=== PATIENT | male | born 1965 | race Caucasian/White ===

== ENCOUNTER 2021-06-16 12:48 | Inpatient (IN) ==
[2021-06-16 14:37] LABS: POC Blood Urea Nitrogen 39 mg/dL (6-20); POC CO2 27 mmol/L (22-30); POC Calcium, Ionized 0.81 mmEq/L (1.16-1.32); POC Chloride 94 mEq/L (96-108); POC Creatinine 2.1 mg/dL (0.6-1.2); POC Glucose, Random 89 mg/dL (70-105); POC Hematocrit 41 % (41-55); POC Potassium 3.4 mEql/L (3.3-5.1); POC Sodium 138 mEq/L (133-145)
[2021-06-16] MEDS ORDERED: FUROSEMIDE 40 MG/4 ML VIAL IV ONE (14:45)
--- NOTE | 2021-06-16 14:50 | XRay Report ---
INDICATION: CHF TECHNIQUE: AP portable upright chest x-ray COMPARISON: Previous chest x-rays dated 11/12/2012, 04/10/2011 FINDINGS:Previous median sternotomy. There is a left-sided cardiac pacemaker Lungs:Lungs are negative. No focal pulmonary parenchymal infiltrate or mass Heart, vascular: Heart size is at the upper limits of normal considering AP positioning. Pulmonary vascularity is normal. No pulmonary edema or pulmonary congestion Mediastinum, gracia:No mediastinal widening. No hilar mass Pleura:No pleural fluid. No pleural-based mass or calcification Skeletal:Negative. IMPRESSION: 1. No acute or focal abnormality 2. No evidence for congestive heart failure Interpreted and Authenticated by: Oswald Bonilla 06/16/21
[2021-06-16] MEDS ORDERED: CHLOROTHIAZIDE SODIUM 500 MG VIAL IV ONE (15:58)
--- NOTE | 2021-06-16 16:20 | Emergency Department Note ---
SOB HPI General Chief Complaint: Shortness of Breath/Dyspnea Stated Complaint: Short of breath Time Seen by Provider: 06/16/21 13:05 Source: patient Mode of arrival: ambulatory Limitations: no limitations History of Present Illness HPI Narrative: This is a 55-year-old male who presents with history of CHF and acute CHF exacerbation. He was treated 2 days ago at [facility] ER with 40 mg of IV Lasix and initially felt better. He was sent home with a recommendation for adding an additional 20 Lasix a day orally. He states that this has not helped and he is now reporting increasing shortness of breath with exertion. He also reports a 16 pound weight gain in the last 2 weeks. Patient has a history of CAD status post CABG x2 in the remote past. He also has a history of atrial fibrillation on chronic Eliquis therapies x1 year and he is status post PPM. He currently denies chest pain, diaphoresis, nausea or vo miting. Patient had an echocardiogram on 06/10/2021 and it showed a mildly reduced LVEF of 45% and global hypokinesis. In addition, he was noted to have moderate to severe aortic stenosis with an aortic valve area of 0.9 cm. The aortic stenosis has progressed since previous echocardiogram. He does have normal diastolic function and RSVP of 40 mmHg. Related Data Allergies Allergy/AdvReac Type Severity Reaction Status Date / Time [id number] Reductase AdvReac Intermediate Irritable Verified 06/16/21 12:52 Inhibitor Review of Systems ROS ROS Narrative: Narrative: All systems ED: reviewed and negative except as stated. PFS Narrative Patient History Narrative: Narrative: Medical/Surgical/Family History All Active Problems (Updated 06/16/21 @ 17:07 by Darlyn Syed PA-C) Congestive heart failure (Acute) Aortic stenosis, severe (Acute) Acute kidney failure (Acute) Social History Smoking Status: Never smoker Exam Narrative Narrative: Narrative: General Limitations: no limitations Course Course Course Narrative: 55-year-old male presents for acute CHF exacerbation Reevaluation(s) Reevaluation #1: Obtain CBC, CMP, BNP, TSH, troponin Obtain EKG and chest x-ray Establish IV for IV Lasix Reevaluation #2: Patient's TSH is elevated at 8.4, troponin is less than 0.02. CMP with significant elevation in his creatinine to 2.1 from 1.4 on 06/14/2021. BUN is also elevated at 39. BNP is essentially unchanged from 06/14/2021 at 2060. Chest x-ray shows no pulmonary edema and mild cardiomegaly. EKG shows atrial f ibrillation with V-paced complexes with a rate of 55 bpm. Give 40 mg IV Lasix, consider potentiating with 250 of IV Diuril if he does not respond robustly. I have reached out to the hospitalist for admission for ongoing IV diuresis and treatment for his hypothyroidism, which may be contributing to his shortness of breath and lower extremity edema. He has an appointment with the cardiology physician personal banking assistant on Sunday at 8 AM. Vital Signs Vital signs: Vital Signs Temperature 98.1 F 06/16/21 12:49 Pulse Rate 63 06/16/21 12:49 Respiratory Rate 18 06/16/21 12:49 Blood Pressure 171/90 06/16/21 12:49 Pulse Oximetry (%) 96 06/16/21 12:49 Temperature 98.1 F 06/16/21 12:49 Pulse Rate 55 L 06/16/21 16:45 Respiratory Rate 20 06/16/21 16:45 Blood Pressure 141/79 06/16/21 16:45 Pulse Oximetry (%) 100 06/16/21 16:45 [facility] MDM Narrative Medical decision making narrative: Acute CHF exacerbation Hypothyroidism Acute kidney injury Severe aortic stenosis Patient meets criteria for admission and I believe he needs to be admitted for IV diuresis and stabilization, and monitoring of his kidney function. Patient is Covid negative. He is amenable for admission. He has follow-up with his cardiologists office on Sunday. I have spoken with Dr. Chau and he has accepted the patient for admission. Lab Data Result diagrams: 06/16/21 14:20 Labs: Lab Results 06/16/21 06/16/21 06/16/21 Range/Units 14:20 14:20 14:20 WBC (4.5-11.0) K/mcL RBC (4.63-6.08) M/mcL Hgb (13.7-17.5) g/dL Hct (40.1-51.0) % POC Hct 41 (41-55) % MCV (80.0-100.0) fL MCH (26.0-34.0) pg MCHC (31.0-36.0) g/dL RDW (11.5-14.5) % Plt Count (140-440) K/mcL MPV (7.4-10.4) fL Neut % (Auto) (38.0-78.0) % Lymph % (Auto) (15.5-49.0) % Wharton % (Auto) (1.0-12.0) % Eos % (Auto) (0.0-7.0) % Baso % (Auto) (0.0-2.0) % Lymph # (Auto) (1.50-4.80) K/mcL Wharton # (Auto) (0.10-0.90) K/mcL Eos # (Auto) (0.00-0.70) K/mcL Baso # (Auto) (0.00-0.30) K/mcL Absolute Neutrophils (1.80-8.00) K/mcL POC Sodium 138 (133-145) mEq/L POC Potassium 3.4 (3.3-5.1) mEql/L POC Chloride 94 L (96-108) mEq/L POC Total CO2 27 (22-30) mmol/L POC BUN 39 H (6-20) mg/dL POC Creatinine 2.1 H (0.6-1.2) mg/dL POC Glucose 89 (70-105) mg/dL POC WB Ioniz Calcium 0.81 L (1.16-1.32) mmEq/L Troponin T 0.02 (<0.03) ng/mL NT-Pro-B Natriuret Pep 2061.0 H (<125.0) pg/mL TSH 8.40 H (0.27-5.01) uIU/mL 06/16/21 Range/Units 14:20 WBC 7.3 (4.5-11.0) K/mcL RBC 4.31 L (4.63-6.08) M/mcL Hgb 13.0 L (13.7-17.5) g/dL Hct 40.1 (40.1-51.0) % POC Hct (41-55) % MCV 93.0 (80.0-100.0) fL MCH 30.2 (26.0-34.0) pg MCHC 32.4 (31.0-36.0) g/dL RDW 14.8 H (11.5-14.5) % Plt Count 188 (140-440) K/mcL MPV 11.2 H (7.4-10.4) fL Neut % (Auto) 66.7 (38.0-78.0) % Lymph % (Auto) 21.3 (15.5-49.0) % Wharton % (Auto) 11.1 (1.0-12.0) % Eos % (Auto) 0.5 (0.0-7.0) % Baso % (Auto) 0.4 (0.0-2.0) % Lymph # (Auto) 1.56 (1.50-4.80) K/mcL Wharton # (Auto) 0.81 (0.10-0.90) K/mcL Eos # (Auto) 0.04 (0.00-0.70) K/mcL Baso # (Auto) 0.03 (0.00-0.30) K/mcL Absolute Neutrophils 4.87 (1.80-8.00) K/mcL POC Sodium (133-145) mEq/L POC Potassium (3.3-5.1) mEql/L POC Chloride (96-108) mEq/L POC Total CO2 (22-30) mmol/L POC BUN (6-20) mg/dL POC Creatinine (0.6-1.2) mg/dL POC Glucose (70-105) mg/dL POC WB Ioniz Calcium (1.16-1.32) mmEq/L Troponin T (<0.03) ng/mL NT-Pro-B Natriuret Pep (<125.0) pg/mL TSH (0.27-5.01) uIU/mL ED POC Tests ED POC Tests: ROLO - SARS Antigen Negative Discharge Plan Patient/Caregiver Discharge Instructions Pt seen by [employer]/PA only: Yes Clinical Impression: Congestive heart failure, Aortic stenosis, severe, Acute kidney failure Patient Disposition: Xfer As Inpt ([facility]) Follow up with: Yasmin Chaudhry MD [Primary Care Provider] -
[2021-06-16] MEDS ORDERED: POTASSIUM CHLORIDE 20 MEQ TABLET PO ONE (16:33)
[2021-06-16 16:35] LABS: Basophils # (Auto) 0.03 K/mcL (0.00-0.30); Basophils % (Auto) 0.4 % (0.0-2.0); Eosinophils # (Auto) 0.04 K/mcL (0.00-0.70); Eosinophils % (Auto) 0.5 % (0.0-7.0); Hematocrit 40.1 % (40.1-51.0); Lymphocytes # (Auto) 1.56 K/mcL (1.50-4.80); Lymphocytes % (Auto) 21.3 % (15.5-49.0); Mean Corpuscular HGB Conc 32.4 g/dL (31.0-36.0); Mean Platelet Volume 11.2 fL (7.4-10.4); Monocytes # (Auto) 0.81 K/mcL (0.10-0.90); Monocytes % (Auto) 11.1 % (1.0-12.0); Neutrophils % (Auto) 66.7 % (38.0-78.0); Platelet Count 188 K/mcL (140-440); RBC 4.31 M/mcL (4.63-6.08); Red Cell Distribution Width 14.8 % (11.5-14.5); WBC 7.3 K/mcL (4.5-11.0)
--- NOTE | 2021-06-16 17:22 | Internal Med History&Physical ---
HPI History of Present Illness Patient information: Note initiated : 06/16/21 at 5:15 pm Service Date, if different from initiated Date: [] Patient: Michael Cross a 55 y/o M admitted on for Short of breath. Chief Complaint: [] History of present illness: Mr. Cross is a 55 year old M Presents the ED with shortness of breath especially with exertion over the past several weeks. Patient complains of 16 pound weight gain over the past couple weeks. He went in to [facility] several days ago and was given dose of IV Lasix did feel better that day and was told to take 20 mg of p.o. Lasix extra per day. Patient states that since he left he is decided worsening dyspnea with exertion again. Patient denies orthopnea. He has mild cough from allergies but no real change. No medication changes recently. Denies any changes in his diet. Patient states his normal weight is 250 pounds. Has a known history of aortic stenosis which is being followed by cardiology. Also has a history of atrial fibrillation and AV block status post pacemaker. He has mild obstructive sleep lung disease but does not require oxygen. Denies chest pain. Review of Systems: Pertinent positives as above. Denies headache/fever/chills/nausea/vomiting/chest or abdominal pain/diarrhea. Remaining 10 point review of system reviewed negative PFSH PFSH All Active Problems (Updated 06/16/21 @ 17:07 by Darlyn Syed PA-C) Congestive heart failure (Acute) Aortic stenosis, severe (Acute) Acute kidney failure (Acute) MEDS/ALLERGIES Home Medications and Allergies Allergies Allergy/AdvReac Type Severity Reaction Status Date / Time [id number] Reductase AdvReac Intermediate Irritable Verified 06/16/21 12:52 Inhibitor EXAM Constitutional Vitals: Temp Pulse Resp BP Pulse Ox 98.1 F 55 L 20 141/79 100 06/16/21 12:49 06/16/21 16:45 06/16/21 16:45 06/16/21 16:45 06/16/21 16:45 Exam: General: Alert, Awake, No acute Distress Eyes/N/T: EOMI, PERRL, Head/Neck: neck supple, normocephalic atraumatic, minimal HJR CV: RRR, No murmurs, normal s1/s2 Pulm: Clear b/l, no wheezing/rhonchi/rales Abd: soft, nontender, +BS x4 Ext: no clubbing/cyanosis, b/l LE 2+ edema Neuro: Alert, no focal deficits, moves all extremities, CN 2-12 grossly intact, symmetrical strength b/l upper/lower, sensations intact b/l upper/lower Skin: warm/dry DATA Data Completed and Pending Labs: Labs from last 24 hours 06/16/21 06/16/21 06/16/21 14:20 14:20 14:20 WBC 7.3 RBC 4.31 L Hgb 13.0 L Hct 40.1 POC Hct MCV 93.0 MCH 30.2 MCHC 32.4 RDW 14.8 H Plt Count 188 MPV 11.2 H Neut % (Auto) 66.7 Lymph % (Auto) 21.3 [place]ven % (Auto) 11.1 Eos % (Auto) 0.5 Baso % (Auto) 0.4 Lymph # (Auto) 1.56 [place]ven # (Auto) 0.81 Eos # (Auto) 0.04 Baso # (Auto) 0.03 Absolute Neutrophils 4.87 POC Sodium Sodium Pending POC Potassium Potassium Pending POC Chloride Chloride Pending Carbon Dioxide Pending POC Total CO2 Anion Gap Pending POC BUN BUN Pending Creatinine Pending POC Creatinine GFR Calculation Pending Glucose Pending POC Glucose Uric Acid Pending Calcium Pending POC WB Ioniz Calcium Phosphorus Pending Magnesium Pending Total Bilirubin Pending Direct Bilirubin Pending GGT Pending AST Pending ALT Pending Alkaline Phosphatase Pending Lactate Dehydrogenase Pending Troponin T NT-Pro-B Natriuret Pep Total Protein Pending Albumin Pending Globulin Pending Albumin/Globulin Ratio Pending Triglycerides Pending TSH 8.40 H 06/16/21 06/16/21 14:20 14:20 WBC RBC Hgb Hct POC Hct 41 MCV MCH MCHC RDW Plt Count MPV Neut % (Auto) Lymph % (Auto) Craven % (Auto) Eos % (Auto) Baso % (Auto) Lymph # (Auto) [place]ven # (Auto) Eos # (Auto) Baso # (Auto) Absolute Neutrophils POC Sodium 138 Sodium POC Potassium 3.4 Potassium POC Chloride 94 L Chloride Carbon Dioxide POC Total CO2 27 Anion Gap POC BUN 39 H BUN Creatinine POC Creatinine 2.1 H GFR Calculation Glucose POC Glucose 89 Uric Acid Calcium POC WB Ioniz Calcium 0.81 L Phosphorus Magnesium Total Bilirubin Direct Bilirubin GGT AST ALT Alkaline Phosphatase Lactate Dehydrogenase Troponin T 0.02 NT-Pro-B Natriuret Pep 2061.0 H Total Protein Albumin Globulin Albumin/Globulin Ratio Triglycerides TSH A/P Narrative A/P Narrative: A: *Acute on chronic systolic(45%) CHF: *Aortic stenosis: mod-sev on last echo *dyspnea on exertion: *CAD w/cabg & stents: Follows Dr. Salvador *PAF with complete AVB s/p PPM: *?DEBBI on CKD III: *COPD, mild: *obese: *Hypothyroidism: elevated TSH P: -IV lasix -elevate legs and comp wraps -f/u renal fxn -check T4, levothyroxine likely needs to be increased -Med reconciliation -pt/ot -ppx: eliquis DNR Time Spent With Patient Time: Total time spent is greater than 50% in coordination of care (as documented) at patient's floor/unit and/or counseling patient:
[2021-06-16 17:34] LABS: ALT/SGPT 13 U/L (<40); AST/SGOT 27 U/L (<40); Albumin 4.1 gm/dL (3.2-5.2); Albumin/Globulin Ratio 1.4 (1.0-2.3); Alkaline Phosphatase 90 U/L (39-117); Bilirubin,Direct 0.3 mg/dL (<0.3); Bilirubin,Total 1.3 mg/dL (0.1-1.0); Blood Urea Nitrogen 34 mg/dL (6-20); Calcium 7.1 mg/dL (8.6-10.4); Carbon Dioxide 22 mmol/L (22-30); Chloride 97 mmol/L (96-108); Globulin 2.9 gm/dL (2.2-3.7); Glomerular Filtration Rate 36; Glucose 90 mg/dL (70-105); Lactate Dehydrogenase 391 U/L (135-225); Phosphorous 5.5 mg/dL (2.5-4.5); Triglycerides 73 mg/dL (<150); Uric Acid 12.4 mg/dL (2.5-8.0)
[2021-06-16] MEDS ORDERED: METOLAZONE 2.5 MG TABLET PO ONE (19:16)
[2021-06-16] MEDS ORDERED: IPRATROPIUM/ALBUTEROL 3 ML AMPUL.NEB NEB PRN (19:16)
[2021-06-16] MEDS ORDERED: POLYETHYLENE GLYCOL 3350 17 GM PACKET PO PRN (19:16)
[2021-06-16] MEDS ORDERED: POTASSIUM CHLORIDE 20 MEQ TABLET PO PRN ×2 (19:16)
[2021-06-16] MEDS ORDERED: FUROSEMIDE 20 MG/2 ML VIAL IV ONE (19:16)
[2021-06-16] MEDS ORDERED: POTASSIUM CHLORIDE 40 MEQ in DEXTROSE 5% IN WATER 500 ML IV PRN (19:16)
[2021-06-16] MEDS ORDERED: MAGNESIUM SULFATE 2 GM/50 ML BAG IV PRN (19:16)
[2021-06-16] MEDS ORDERED: ACETAMINOPHEN 325 MG TABLET PO PRN (19:16)
[2021-06-16] MEDS ORDERED: ONDANSETRON 4 MG/2 ML VIAL IV PRN (19:16)
[2021-06-16] MEDS ORDERED: APIXABAN 5 MG TABLET PO SCH (21:00)
[2021-06-16] MEDS: APIXABAN 5 MG TABLET PO SCH (21:25)
[2021-06-16] MEDS: EZETIMIBE 10 MG TABLET PO SCH (21:25)
[2021-06-16] MEDS: 0.9 % SODIUM CHLORIDE 10 ML SYRINGE IV SCH (21:25)
[2021-06-17] MEDS: 0.9 % SODIUM CHLORIDE 10 ML SYRINGE IV SCH ×3 (05:59→20:33)
[2021-06-17] MEDS ORDERED: LEVOTHYROXINE 100 MCG TABLET PO SCH (07:30)
[2021-06-17] MEDS ORDERED: CALCIUM GLUCONATE 4.65 MEQ/10 ML VIAL IV ONE (07:40)
--- NOTE | 2021-06-17 07:42 | Internal Med Progress Note ---
SUBJECTIVE Subjective Patient information: Note initiated : 06/17/21 at 7:38 am Service Date, if different from initiated Date: [] Patient: Michael Cross a 55 y/o M admitted on 06/16/21 for Short of breath. Chief Complaint: [] Interval history: History of present illness: Mr. Cross is a 55 year old M Presents the ED with shortness of breath especially with exertion over the past several weeks. Patient complains of 16 pound weight gain over the past couple weeks. He went in to [facility] several days ago and was given dose of IV Lasix did feel better that day and was told to take 20 mg of p.o. Lasix extra per day. Patient states that since he left he is decided worsening dyspnea with exertion again. Patient denies orthopnea. He has mild cough from allergies but no real change. No medication changes recently. Denies any changes in his diet. Patient states his normal weight is 250 pounds. Has a known history of aortic stenosis which is being followed by cardiology. Also has a history of atrial fibrillation and AV block status post pacemaker. He has mild obstructive sleep lung disease but does not require oxygen. Denies chest pain. 06/17 Patient feeling less bloated. Breathing much better. No new complaints overnight events. Renal function stable, Review of Systems: denies headache/fever/chills/nausea/vomiting/chest or abdominal pain/cough/dyspnea/diarrhea. Otherwise see above. Constitutional Vitals: Vital Signs Temp Pulse Resp BP Pulse Ox 97.4 F 56 L 15 116/61 98 06/17/21 02:02 06/17/21 04:10 06/17/21 03:01 06/17/21 04:01 06/17/21 04:10 Period Temp Pulse Resp BP Sys/Pitts Pulse Ox Last 24 Hr 97.4 F-98.1 F 54-96 12-26 100-1328/49-90 95-100 Intake and Output 06/16/21 06/17/21 06/17/21 21:59 05:59 13:59 Intake Total 600 800 Output Total 2375 1200 Balance -1775 -400 Weight 120.656 kg Intake & Output: Intake & Output 06/16/21 06/17/21 06/17/21 21:59 05:59 13:59 Intake Total 600 800 Output Total 2375 1200 Balance -1773 -400 Weight 120.656 kg Intake: Oral 600 800 Output: Void Amount 2374 1200 Other: Meal sanwhich and fruit Percent of Meal Consumed 100% Feeding Ability Independent Urine Appearance Clear Clear Urine Color Pale Pale Urine Odor Normal Normal Exam: General: Alert, Awake, No acute Distress Eyes/N/T: EOMI, , Head/Neck: neck supple, CV: RRR, No murmurs, Pulm: Clear b/l, no wheezing/rhonchi/rales Abd: soft, nontender, +BS x4 Ext: no clubbing/cyanosis, b/l LE 2+ edema Neuro: Alert, no focal deficits, moves all extremities, Skin: warm/dry OBJ DATA Labs CBC & Chem 7: 06/16/21 14:20 06/17/21 05:40 Labs: Abnormal Lab Results 06/16/21 06/16/21 06/16/21 14:20 14:20 14:20 RBC 4.31 L Hgb 13.0 L RDW 14.8 H MPV 11.2 H POC Chloride Anion Gap 23.0 H POC BUN BUN 34 H Creatinine 2.0 H POC Creatinine Uric Acid 12.4 H Calcium 7.1 L POC WB Ioniz Calcium Phosphorus 5.5 H Total Bilirubin 1.3 H Direct Bilirubin 0.3 H GGT 196 H Lactate Dehydrogenase 391 H NT-Pro-B Natriuret Pep TSH 8.40 H 06/16/21 14:20 RBC Hgb RDW MPV POC Chloride 94 L Anion Gap POC BUN 39 H BUN Creatinine POC Creatinine 2.1 H Uric Acid Calcium POC WB Ioniz Calcium 0.81 L Phosphorus Total Bilirubin Direct Bilirubin GGT Lactate Dehydrogenase NT-Pro-B Natriuret Pep 2061.0 H TSH Meds: Medications Acetaminophen (Acetaminophen 325 Mg Tablet) 650 mg PO Q6HP PRN; Protocol PRN Reason: Per Pain Protocol/Fever > 101 Albuterol/Ipratropium (Ipratropium/Albuterol 3 Ml Ampul.Neb) 3 ml NEB Q4HP PRN PRN Reason: Shortness Of Breath Apixaban (Apixaban 5 Mg Tablet) 5 mg PO BID [facility] Last Admin: 06/16/21 21:25 Dose: 5 mg Documented by: Clopidogrel Bisulfate (Clopidogrel 75 Mg Tablet) 75 mg PO QDAY [facility] Ezetimibe (Ezetimibe 10 Mg Tablet) 10 mg PO QHS [facility] Last Admin: 06/16/21 21:25 Dose: 10 mg Documented by: Furosemide (Furosemide 40 Mg/4 Ml Vial) 40 mg IV BIDD [facility] Potassium Chloride 40 meq/ (Dextrose) 520 mls @ 130 mls/hr IV UD PRN PRN Reason: Potassium < 3 Magnesium Sulfate (Magnesium Sulfate) 2 gm in 50 mls @ 50 mls/hr IV UD PRN PRN Reason: Magnesium </= 1.6 Levothyroxine Sodium (Levothyroxine 100 Mcg Tablet) 100 mcg PO ACB [facility] Ondansetron HCl (Ondansetron 4 Mg/2 Ml Vial) 4 mg IV Q4HP PRN PRN Reason: Nausea And Vomiting Polyethylene Glycol (Polyethylene Glycol 3350 17 Gm Packet) 17 gm PO DAILYP PRN PRN Reason: Constipation Potassium Chloride (Potassium Chloride 20 Meq Tablet) 40 meq PO UD PRN PRN Reason: Potssium is 3-3.5 Potassium Chloride (Potassium Chloride 20 Meq Tablet) 40 meq PO UD PRN PRN Reason: Potassium < 3 Potassium Chloride (Potassium Chloride 10 Meq Tablet) 10 meq PO QAC [facility] Sodium Chloride (0.9 % Sodium Chloride 10 Ml Syringe) 10 ml IV Q8 [facility] Last Admin: 06/17/21 05:59 Dose: 10 ml Documented by: Spironolactone (Spironolactone 25 Mg Tablet) 12.5 mg PO DAILY [facility] A/P Narrative A/P Narrative: A: *Acute on chronic systolic(45%) CHF: -good uop *Aortic stenosis: mod-sev on last echo *dyspnea on exertion: *CAD w/cabg & stents: Follows Dr. Salvador *PAF with complete AVB s/p PPM: *?DEBBI on CKD III: *COPD, mild: *obese: *Hypothyroidism: elevated TSH P: -IV lasix -elevate legs and comp wraps -f/u renal fxn -increase levothyroxine from 100 to 125mcg, f/u outpt -pt/ot -ppx: eliquis DNR Time Spent With Patient Time: Total time spent is greater than 50% in coordination of care (as docu mented) at patient's floor/unit and/or counseling patient: QUALITY VTE Deep Vein Thrombosis/Pulmonary Embolism Present on Admission: No
[2021-06-17] MEDS: LEVOTHYROXINE 125 MCG TABLET PO SCH (07:54)
[2021-06-17] MEDS ORDERED: FUROSEMIDE 40 MG/4 ML VIAL IV SCH (08:00)
[2021-06-17] MEDS ORDERED: CALCIUM GLUCONATE 9.3 MEQ in DEXTROSE 5% IN WATER 50 ML IV ONE (08:00)
[2021-06-17] MEDS: POTASSIUM CHLORIDE 10 MEQ TABLET PO SCH (08:20)
[2021-06-17 08:26] LABS: ALT/SGPT 13 U/L (<40); AST/SGOT 28 U/L (<40); Albumin/Globulin Ratio 1.4 (1.0-2.3); Alkaline Phosphatase 93 U/L (39-117); Bilirubin,Direct 0.3 mg/dL (<0.3); Bilirubin,Total 1.1 mg/dL (0.1-1.0); Blood Urea Nitrogen 37 mg/dL (6-20); Carbon Dioxide 24 mmol/L (22-30); Chloride 94 mmol/L (96-108); Globulin 2.9 gm/dL (2.2-3.7); Glomerular Filtration Rate 38; Glucose 89 mg/dL (70-105); Lactate Dehydrogenase 430 U/L (135-225); Phosphorous 6.1 mg/dL (2.5-4.5); Triglycerides 88 mg/dL (<150)
[2021-06-17] MEDS ORDERED: SPIRONOLACTONE 25 MG TABLET PO SCH (09:00)
[2021-06-17] MEDS: CLOPIDOGREL 75 MG TABLET PO SCH (09:22)
[2021-06-17] MEDS: SEVELAMER 800 MG TABLET PO SCH ×3 (09:22→17:58)
[2021-06-17] MEDS: APIXABAN 5 MG TABLET PO SCH ×2 (09:22→20:33)
--- NOTE | 2021-06-17 10:04 | Discharge Summary ---
Discharge Provider Provider Patient information: Note initiated : 06/17/21 at 10:02 am Service Date, if different from initiated Date: [] Patient: Michael Cross 55 y/o M admitted on 06/16/21 for Short of breath. Chief Complaint: [] Date of admission: 06/16/21 19:10 Discharge date: 06/18/21 Primary care physician: Yasmin Chaudhry MD Consults: 06/16/21 Consult to Physician [CONS] Stat Comment: Consulting Provider: Jak Chau Reason For Exam: Physician to Consult Discharge Meds Discharge Medications Home Medications Eliquis 5 mg PO BID 06/16/21 [History Confirmed 06/16/21 Last Taken 06/16/21 10: 00] clopidogrel 75 mg PO QDAY 06/16/21 [History Confirmed 06/16/21 Last Taken 06/16/21 10:00] ezetimibe 10 mg PO QHS 06/16/21 [History Confirmed 06/16/21 Last Taken 06/15/21 22:00] potassium 10 mg PO QDAY 06/16/21 [History Confirmed 06/16/21 Last Taken 06/16/21 10:00] levothyroxine 125 mcg PO ACB #30 tab 06/17/21 [Rx Last Taken Unknown] furosemide 40 mg PO DAILY #30 tab 06/18/21 [Rx Last Taken Unknown] COURSE Hospital Course Hospital course: History of present illness: Mr. Cross is a 55 year old M Presents the ED with shortness of breath especially with exertion over the past several weeks. Patient complains of 16 pound weight gain over the past couple weeks. He went in to [facility] several days ago and was given dose of IV Lasix did feel better that day and was told to take 20 mg of p.o. Lasix extra per day. Patient states that since he left he is decided worsening dyspnea with exertion again. Patient denies orthopnea. He has mild cough from allergies but no real change. No medication changes recently. Denies any changes in his diet. Patient states his normal weight is 250 pounds. Has a known history of aortic stenosis which is being followed by cardiology. Also has a history of atrial fibrillation and AV block status post pacemaker. He has mild obstructive sleep lung disease but does not require oxygen. Denies chest pain. 11/5 Patient feeling less bloated. Breathing much better. No new complaints overnight events. Renal function stable, 06/18 Doing well. Feeling much better. Good urine output. Patient here for discharge. Patient to follow-up closely with community living specialist. A: *Acute on chronic systolic(45%) CHF: *Aortic stenosis: mod-sev on last echo *dyspnea on exertion: *CAD w/cabg & stents: Follows Dr. Salvador *PAF with complete AVB s/p PPM: *?DEBBI on CKD III: *COPD, mild: *obese: *Hypothyroidism: elevated TSH Discharge diagnosis: Chronic systolic heart failure aortic stenosis dyspnea Secondary discharge diagnosis: CAD PAF chronic kidney disease COPD obesity hypothyroidism Time Spent with Patient Time attestation: Total time spent providing and/or coordinating discharge services: Time spent: Greater than 30 minutes EXAM Constitutional Vitals: Temp Pulse Resp BP Pulse Ox 97.3 F 56 L 23 H 109/60 98 06/17/21 08:01 06/17/21 08:01 06/17/21 08:01 06/17/21 08:01 06/17/21 08:01 Discharge Data Data Completed and Pending Labs on day of discharge: Labs from last 24 hours 06/17/21 06/17/21 06/16/21 09:13 05:40 14:20 WBC RBC Hgb Hct POC Hct MCV MCH MCHC RDW Plt Count MPV Neut % (Auto) Lymph % (Auto) [place] % (Auto) Eos % (Auto) Baso % (Auto) Lymph # (Auto) [place] # (Auto) Eos # (Auto) Baso # (Auto) Absolute Neutrophils POC Sodium Sodium 137 POC Potassium Potassium 3.7 POC Chloride Chloride 94 L Carbon Dioxide 24 POC Total CO2 Anion Gap 19.0 H POC BUN BUN 37 H Creatinine 1.9 H POC Creatinine GFR Calculation 38 Glucose 89 POC Glucose Uric Acid 13.0 H Calcium 7.0 L POC WB Ioniz Calcium Phosphorus 6.1 H* Magnesium 2.0 Total Bilirubin 1.1 H Direct Bilirubin 0.3 H GGT 189 H AST 28 ALT 13 Alkaline Phosphatase 93 Lactate Dehydrogenase 430 H Troponin T NT-Pro-B Natriuret Pep Total Protein 6.9 Albumin 4.0 Globulin 2.9 Albumin/Globulin Ratio 1.4 Triglycerides 88 TSH Free T4 1.42 PTH Intact Pending PTH Related Protein Pending 06/16/21 06/16/21 06/16/21 14:20 14:20 14:20 WBC 7.3 RBC 4.31 L Hgb 13.0 L Hct 40.1 POC Hct MCV 93.0 MCH 30.2 MCHC 32.4 RDW 14.8 H Plt Count 188 MPV 11.2 H Neut % (Auto) 66.7 Lymph % (Auto) 21.3 [place] % (Auto) 11.1 Eos % (Auto) 0.5 Baso % (Auto) 0.4 Lymph # (Auto) 1.56 [place] # (Auto) 0.81 Eos # (Auto) 0.04 Baso # (Auto) 0.03 Absolute Neutrophils 4.87 POC Sodium Sodium 142 POC Potassium Potassium 3.7 POC Chloride Chloride 97 Carbon Dioxide 22 POC Total CO2 Anion Gap 23.0 H POC BUN BUN 34 H Creatinine 2.0 H POC Creatinine GFR Calculation 36 Glucose 90 POC Glucose Uric Acid 12.4 H Calcium 7.1 L POC WB Ioniz Calcium Phosphorus 5.5 H Magnesium 2.1 Total Bilirubin 1.3 H Direct Bilirubin 0.3 H GGT 196 H AST 27 ALT 13 Alkaline Phosphatase 90 Lactate Dehydrogenase 391 H Troponin T NT-Pro-B Natriuret Pep Total Protein 7.0 Albumin 4.1 Globulin 2.9 Albumin/Globulin Ratio 1.4 Triglycerides 73 TSH 8.40 H Free T4 PTH Intact PTH Related Protein 06/16/21 06/16/21 14:20 14:20 WBC RBC Hgb Hct POC Hct 41 MCV MCH MCHC RDW Plt Count MPV Neut % (Auto) Lymph % (Auto) [place] % (Auto) Eos % (Auto) Baso % (Auto) Lymph # (Auto) [place] # (Auto) Eos # (Auto) Baso # (Auto) Absolute Neutrophils POC Sodium 138 Sodium POC Potassium 3.4 Potassium POC Chloride 94 L Chloride Carbon Dioxide POC Total CO2 27 Anion Gap POC BUN 39 H BUN Creatinine POC Creatinine 2.1 H GFR Calculation Glucose POC Glucose 89 Uric Acid Calcium POC WB Ioniz Calcium 0.81 L Phosphorus Magnesium Total Bilirubin Direct Bilirubin GGT AST ALT Alkaline Phosphatase Lactate Dehydrogenase Troponin T 0.02 NT-Pro-B Natriuret Pep 2061.0 H Total Protein Albumin Globulin Albumin/Globulin Ratio Triglycerides TSH Free T4 PTH Intact PTH Related Protein Discharge Plan Patient/Caregiver Discharge Instructions Activity: increase activity as tolerated Diet: Cardiac Instructions: Heart Failure (GEN), Heart Healthy Diet (GEN), Dyspnea (GEN) Activity Restrictions/Additional Instructions: Follow-up thyroid function labs outpatient 5 to 6 weeks with PCP. Prescriptions: New levothyroxine 125 mcg Tablet 125 mcg PO ACB Qty: 30 RF: 0 Continued clopidogrel 75 mg Tablet 75 mg PO QDAY RF: 0 potassium 20 mg Tablet,Chewable 10 mg PO QDAY RF: 0 ezetimibe 10 mg Tablet 10 mg PO QHS RF: 0 Eliquis 5 mg Tablet 5 mg PO BID RF: 0 Changed furosemide 20 mg Tablet 40 mg PO DAILY Qty: 30 RF: 0 Discontinued levothyroxine 100 mcg Capsule 100 mcg PO QDAY RF: 0 Follow Up Plan Follow up with: Yasmin Chaudhry MD [Primary Care Provider] - (Please call Sunday to schedule a post hospital follow up appointment.) Irwin Salvador [Physician] - (heart failure, recent hospitalization. Also h/o CAD and paroxysmal Afib) Patient Disposition: Home, Self-Care Prognosis: Fair Overall status at discharge: patient is progressing back to baseline Discharge Orders: Discharge Order (Routine); Ordered 06/18/21 Ordered By: Jak Chau [facility] VTE Deep Vein Thrombosis/Pulmonary Embolism Present on Admission: No
[2021-06-17 10:50] LABS: Parathyroid Hormone Intact-SO 21.2 pg/mL (15.0-65.0)
[2021-06-17] MEDS: EZETIMIBE 10 MG TABLET PO SCH (20:33)
[2021-06-18] MEDS: 0.9 % SODIUM CHLORIDE 10 ML SYRINGE IV SCH (04:55)
[2021-06-18 07:03] LABS: ALT/SGPT 12 U/L (<40); AST/SGOT 28 U/L (<40); Albumin 4.2 gm/dL (3.2-5.2); Albumin/Globulin Ratio 1.3 (1.0-2.3); Alkaline Phosphatase 94 U/L (39-117); Bilirubin,Direct 0.3 mg/dL (<0.3); Bilirubin,Total 1.3 mg/dL (0.1-1.0); Blood Urea Nitrogen 40 mg/dL (6-20); Calcium 7.8 mg/dL (8.6-10.4); Carbon Dioxide 27 mmol/L (22-30); Chloride 91 mmol/L (96-108); Globulin 3.2 gm/dL (2.2-3.7); Glomerular Filtration Rate 44; Glucose 99 mg/dL (70-105); Lactate Dehydrogenase 467 U/L (135-225); Phosphorous 5.4 mg/dL (2.5-4.5); Triglycerides 96 mg/dL (<150); Uric Acid 14.4 mg/dL (2.5-8.0)
[2021-06-18] MEDS: LEVOTHYROXINE 125 MCG TABLET PO SCH (07:40)
[2021-06-18] MEDS ORDERED: CALCIUM GLUCONATE 4.65 MEQ in DEXTROSE 5% IN WATER 50 ML IV ONE (08:00)
[2021-06-18] MEDS: SEVELAMER 800 MG TABLET PO SCH (08:00)
[2021-06-18] MEDS: POTASSIUM CHLORIDE 10 MEQ TABLET PO SCH (08:01)
[2021-06-18] MEDS: CLOPIDOGREL 75 MG TABLET PO SCH (08:58)
[2021-06-18] MEDS: APIXABAN 5 MG TABLET PO SCH (08:58)
--- NOTE | 2021-06-19 17:03 | EKG ---
[facility] Test Date: 2021-06-16 Pat Name: Michael Cross Department: ED Room: Gender: Male [employer]: nickolas : 1965 Requested By: Darlyn Syed Order Number: [id number] Reading MD: Brant Mcclellan Measurements Intervals [place] Rate: 55 P: MD: QRS: 112 QRSD: 148 T: -66 QT: 599 QTc: 573 Interpretive Statements Afib/flut and V-paced complexes reported, however no pacer artifact seen. Pacing is nevertheless plausible based on QRS morphology and the regular ventricular rhythm. Electronically Signed On 06-19-2021 17:02:57 PST by Brant Mcclellan /store/[email or web address]/[id number]
== END 2021-06-18 11:35 | disposition home or self-care (01) | DRG 292 ==
LOC: ED 12:48 → ICU 19:10
PROVIDERS: ADMIT Internal Medicine; ATTEND Internal Medicine